=== PATIENT | female | born 1995 | race African-American/Black ===

== ENCOUNTER 2023-03-12 15:51 | Emergency (ER) | payer SELFPAY ==
[2023-03-12 15:56] VITALS: O2SAT 100
[2023-03-12 15:57] VITALS: BP 138/82; PULSE 77; RESP 14; TEMP 36.7; O2SAT 100
--- NOTE | 2023-03-12 16:33 | ED.ASTHMA ---
HPI - Asthma General Chief Complaint: Asthma Stated Complaint: asthma attack Time Seen by Provider: 03/12/23 16:07 Source: patient and RN notes reviewed Mode of arrival: ambulatory Limitations: no limitations History of Present Illness HPI Narrative: This is a 27 year old female with history of asthma who presents for evaluation of asthma attack. She states she was cleaning out a [employer] garage when she developed wheezing . She normally uses symbicort and ventilon emergency inhaler. She states she does not have those medication with her at that moment so she came to ER. She is short of breath. She denies chest pain, fever, URI or symptoms prior to cleaning out the garage. Related Data Allergies Allergy/AdvReac Type Severity Reaction Status Date / Time No Known Allergies Allergy Verified 03/12/23 16:38 Review of Systems Constitutional: Constitutional: Denies weakness Cardiovascular: Cardiovascular: Denies syncope, Denies rapid heart rate, Denies irregular heart rhythm, Denies leg edema and Denies dyspnea Respiratory: Respiratory: Denies chest congestion, Reports cough, Denies hemoptysis, Denies excessive phlegm production and Reports dyspnea Gastrointestinal: Gastrointestinal: Denies abdominal pain, Denies hematochezia, Denies diarrhea and Denies vomiting Genitourinary: Genitourinary: Denies hematuria and Denies dysuria Musculoskeletal: Musculoskeletal: Denies joint swelling, Denies loss of height and Denies muscle weakness Neurologic: Denies syncope, Denies focal weakness and Denies weakness PMFSH Past Medical History Medical History (Updated 03/12/23 @ 17:23 by Rebeka Sheldon MD) Asthma Surgical History Surgical History (Updated 03/12/23 @ 16:35 by Rebeka Sheldon MD) No pertinent past surgical history Social History Social History (Updated 03/12/23 @ 16:35 by Rebeka Sheldon MD) Smoking status: Never smoker Exam Const: General: no acute distress and alert Nutritional Appearance: well nourished Orientation/consciousness: patient oriented x3 HENMT: Head: normal to inspection Neck: Neck: normal visual inspection Chest: Chest palpation & inspection: normal inspection of the chest Resp: Effort & Inspection: normal respiratory effort Auscultation: wheezes expiratory wheezes and throughout Cardio: Rate: regular rate Rhythm: regular rhythm Heart sounds: no murmurs Skin: General skin exam: normal color Lesions: no lesions Wounds: no wounds Neuro: General: patient oriented x3, moves all extremities and CN's II-XI intact bilaterally Extrem: General: normal to inspection Psych: Mental Status: mental status grossly normal Affect: normal affect Attitude: cooperative Course Reevaluation(s) Reevaluation #1: PAtient reports she feels better. Lungs are now clear. She states she has inhalers at home so no prescription needed. She was instructed on MDI Date: 03/12/23 Time: 17:22 Vital Signs Vital signs: Vital Signs Pulse Oximetry 100 03/12/23 15:56 Oxygen Delivery Room Air 03/12/23 15:56 Temperature 98.1 F 03/12/23 15:57 Pulse Rate 77 03/12/23 15:57 Respiratory Rate 14 03/12/23 15:57 Blood Pressure 138/82 03/12/23 15:57 Pulse Oximetry 100 03/12/23 17:27 Oxygen Delivery Room Air 03/12/23 17:27 Discharge Plan Discharge Clinical Impression: Asthma with acute exacerbation Qualifiers: Asthma severity: mild Patient Disposition: Home, Self-Care Condition: Improved Instructions: Antibiotic Form, Asthma (ED) Additional Instructions: USe MDI as instructed. REturn to ER if symptoms worsen. Follow-up/Referrals: PHYSICIAN NOT ON STAFF,NONSTAFF [Non-Staff] -
[2023-03-12] MEDS: ALBUTEROL SULFATE (*SP) AEROSOL 1 PUFF 4 PUFF INHALATION (16:56)
[2023-03-12 17:27] VITALS: O2SAT 100
== END 2023-03-12 17:28 | disposition home or self-care (01) ==
PROVIDERS: Emergency Provider General Practice
DX: J45.901 Unspecified asthma with (acute) exacerbation (principal)
CPT/HCPCS: 94664; 99283; A9270